=== PATIENT | male | born 1990 | race Caucasian/White ===

== ENCOUNTER 2017-10-30 22:47 | Emergency (ER) | payer SELFPAY ==
[2017-10-30 22:49] VITALS: BP 137/97
--- NOTE | 2017-10-30 23:03 | ER Report ---
History and Physical Time Seen By MD: 22:59 Hx. of Stated Complaint: very intoxicated HPI/ROS CHIEF COMPLAINT: Alcohol intoxication HISTORY OF PRESENT ILLNESS: Patient is a 27-year-old male here with alcohol intoxication. Patient reportedly had 7-8 shots of whiskey today and was found sleeping in the middle of the street. Patient was woken by a woman and the patient decided to run around and avoid police. Patient reportedly ran into somebody's home and was subsequently arrested. Patient is visibly intoxicated but denies injury at this time aside from small abrasions on patient's palms. Patient denies illicit drug use or other medication. REVIEW OF SYSTEMS: Constitutional: No fever, no chills. Eyes: No discharge. ENT: No sore throat. Cardiovascular: No chest pain, no palpitations. Respiratory: No cough, no shortness of breath. Gastrointestinal: No abdominal pain, no vomiting. Genitourinary: No hematuria. Musculoskeletal: No back pain. Skin: + abrasions of palms Neurological: + etoh intoxication Allergies: Coded Allergies: No Known Drug Allergies (Unverified , 10/30/17) Unable To Obtain Past Medical: Refused Hx Alcohol Use: Yes Constitutional Vital Sign - Last 24 Hours 10/30/17 22:49 Temp 98.5 Pulse 88 Resp 16 B/P (MAP) 137/97 Pulse Ox 95 O2 Delivery Room Air Physical Exam General Appearance: + intoxicated, oriented Eyes: Pupils equal and round no pallor or injection. ENT, Mouth: Mucous membranes are moist. Respiratory: There are no retractions, lungs are clear to auscultation. Cardiovascular: Regular rate and rhythm. [ ] Gastrointestinal: Abdomen is soft and non tender, no masses, bowel sounds normal. Neurological: Intoxicated, slurring speech Skin: Warm and dry,+ abrasions of palms. Musculoskeletal: Neck is supple non tender. Extremities are nontender, nonswollen and have full range of motion. DIFFERENTIAL DIAGNOSIS: After history and physical exam differential diagnosis was considered for intoxication with alcohol, polysubstance drug abuse, trauma Medical Decision Making ED Course/Re-evaluation ED Course Patient is a 27-year-old male here with complaints of alcohol intoxication. He reportedly was found sleeping in the history and was uncooperative with police. Patient declined further evaluation and was well-appearing at time of evaluation. He was medically cleared after clinical evaluation and discharged in police care. Patient was stable at discharge. Decision to Disposition Date: Oct 30, 2017 Decision to Disposition Time: 23:00 Depart Departure Latest Vital Signs Vital Signs Date Time Temp Pulse Resp B/P (MAP) Pulse Ox O2 Delivery O2 Flow Rate FiO2 10/30/17 22:49 98.5 88 16 137/97 95 Room Air Impression: Primary Impression: Alcohol abuse Additional Impression: Alcohol intoxication Condition: Condition Unchanged Disposition: [facility] TO PRISON/CORRECTIONAL F Patient Instructions: Abuse of Alcohol (ED) Additional Instructions: Please consider alcohol cessation. Problem Qualifiers NAOMI PEACE DO Oct 30, 2017 23:03
== END 2017-10-30 23:11 ==
LOC: ER 22:50
DX: F10.920 Alcohol use, unspecified with intoxication, uncomplicated (principal)
CPT/HCPCS: 99281